=== PATIENT | male | born 1990 | race African-American/Black ===

== ENCOUNTER 2018-11-23 19:04 | Emergency (ER) | payer MEDICAID, OTHER ==
[~2018-11-23] VITALS: Ht 152.4 cm; Wt 59.0 kg
--- NOTE | 2018-11-23 19:11 | NUR ---
ED Nurse Note: PT was called for trage, pt was not in waiting room.
--- NOTE | 2018-11-23 19:17 | NUR ---
ED Nurse Note: PT was called for trage, pt was not in waiting room.
--- NOTE | 2018-11-23 19:22 | NUR ---
ED Nurse Note: PT was called for trage, pt was not in waiting room.
--- NOTE | 2018-11-23 19:40 | NUR ---
ED Nurse Note: PT was called for trage, pt was not in waiting room.
[2018-11-23] MEDS ORDERED: TRIAMCINOLONE10 G1 MC (20:12)
[2018-11-23 20:17] VITALS: BP 121/73
--- NOTE | 2018-11-23 20:18 | NUR ---
ED Nurse Note: PT walked into ER with mother. mother states that pt has a rash that has been going on for 3 month. the rash is generalized.
[2018-11-23] MEDS ORDERED: DiphenhydrAMINE 50mg/ml Inj IM ONE (20:30)
[2018-11-23] MEDS ORDERED: KENALOG 0.1% LO60 ML TP (20:52)
[2018-11-23] MEDS ORDERED: PREDNISONE20 MG ORAL (20:52)
[2018-11-23 20:54] VITALS: BP 119/70
--- NOTE | 2018-11-23 21:03 | NUR ---
ED Nurse Note: Pt is cleared by Health Care Provider for discharge. DC instructions/prescription was given and explained to pt and verbalized understanding of teachings given. All medical devices such as ID band removed. Pt AAO x4, ambulatory and left with all personal belongings.
--- NOTE | 2018-11-23 23:02 | Emergency Room Report ---
History of Present Illness General Chief Complaint: Skin Rash/Abscess Source: Family Member Present Illness HPI The patient is a 28-year-old male with an intellectual disability brought in by mother for rash. The patient is being treated by primary doctor for eczema. She states that this seems like it's the same. She ran out of triamcinolone for the patient which use to help. Patient has appointment with dermatology in December. The patient is itching these areas. She denies any other symptoms for the patient including fever, chills, wheezing , cough Allergies: Coded Allergies: No Known Allergies (Unverified , 11/23/18) Patient History Past Medical History: see triage record, psych hx Pertinent Family History: none Reviewed Nursing Documentation: PMH: Agreed; PSxH: Agreed Nursing Documentation-PMH Past Medical History: No Stated History Review of Systems All Other Systems: negative except mentioned in HPI Physical Exam Vital Signs Date Time Temp Pulse Resp B/P (MAP) Pulse Ox O2 Delivery O2 Flow Rate FiO2 11/23/18 20:05 98.1 83 12 121/73 99 Room Air Sp02 EP Interpretation: reviewed, normal General Appearance: no apparent distress, alert, GCS 15, non-toxic Head: normocephalic, atraumatic Respiratory: chest non-tender, lungs clear, normal breath sounds, speaking full sentences Cardiovascular #1: regular rate, rhythm, no edema Musculoskeletal: back normal, gait/station normal, normal range of motion Neurologic: alert, responsive Skin: warm/dry, other - dry maculopapular rash diffuse Medical Decision Making PA Attestation Dr. Beatty is my supervising physician. Patient management was discussed with my supervising physician Diagnostic Impression: Primary Impression: Eczema Qualified Codes: L30.9 - Dermatitis, unspecified ER Course The patient is a 28-year-old male with an intellectual disability brought in by mother for rash Ddx considered include but not limited to insect bite, scabies, contact dermatitis, eczema, cellulitis PE: afebrile. NAD Skin is excessively dry. There is a diffuse maculopapular rash with excoriations. Nontender. The mother is asking for injection as the patient does not tolerate oral medications. Patient is given IM Benadryl The patient is given prescription for topical steroid an oral steroid. He will follow-up with primary doctor as soon as possible. Keep appointment with dermatology. ER precautions given Last Vital Signs Date Time Temp Pulse Resp B/P (MAP) Pulse Ox O2 Delivery O2 Flow Rate FiO2 11/23/18 20:54 98.1 83 12 119/70 99 Room Air Status: improved Disposition: HOME, SELF-CARE Condition: Improved Scripts Triamcinolone Acet (Triamcinolone Acetonide) 60 Ml Lotion 1 APPLIC TP BID, #60 ML 1 Refill Prov: KIARRA MONTANA 11/23/18 Prednisone* (PREDNISONE*) 20 Mg Tablet 20 MG ORAL DAILY, #5 TAB 0 Refills Prov: KIARRA [place] 11/23/18 Referrals: [id number],REFERRING (PCP) Patient Instructions: Eczema, Rash, Pruritus Additional Instructions: I discussed my findings with the patient's mother. All questions and concerns have been answered. Treatment and medication compliance have been addressed. I advised the patient that they need to follow up with PMD in 3-5 days. Return to ED if symptoms worsen, new symptoms arise, or if needed for any reason. Patient verbalized understanding of discharge instructions. KIARRA MONTANA Nov 23, 2018 23:02
== END 2018-11-23 21:10 | disposition home or self-care (01) ==
LOC: EMR 20:45
DX: L30.9 Dermatitis, unspecified (principal)
CPT/HCPCS: 96372; 99283; J1200